=== PATIENT | male | born 1995 | race African-American/Black ===

== ENCOUNTER 2023-01-19 08:11 | Observation (INO) | payer MEDICAID ==
[~2023-01-19] VITALS: Ht 198.1 cm; Wt 63.9 kg
[2023-01-19] VITALS (16 sets, daily range): BP systolic 105–141; BP diastolic 53–91
[2023-01-19 08:38] LABS: Base Excess Venous -15.1 mmol/L; Bicarbonate Venous 14.2 mmol/L (24.0-30.0); PCO2 Venous 29.3 mmHg (38-42); pH Blood Venous 7.23 (7.34-7.37)
[2023-01-19 08:39] LABS: Hematocrit 45.5 % (37.0-53.0); Hemoglobin 15.1 g/dL (13.5-17.5); Mean Corpuscular HGB 28.5 pg (26.0-34.0); Mean Corpuscular HGB Conc 33.2 g/dL (31.5-36.5); Mean Corpuscular Volume 86 fL (80-100); Mean Platelet Volume 11.8 fL (9.1-12.4); Platelet Count 353 K/mm3 (150-400); RDW Coefficient Variation 12.1 % (11.7-14.2); RDW Standard Deviation 38.4 fL (35.1-46.3); Red Blood Cell Count 5.29 M/mm3 (4.30-5.90); White Blood Cell Count 19.43 K/mm3 (4.00-11.30)
[2023-01-19 08:52] LABS: Source, Urine Clean Catch
[2023-01-19 08:59] LABS: Magnesium, Blood 2.7 mg/dL (1.6-2.4)
[2023-01-19 09:09] LABS: Appearance, Urine Clear (Clear); Bilirubin, Urine Neg (Neg); Blood, Urine Neg (Neg); Glucose Qualitative, Urine 4+ (Neg); Ketones, Urine 4+ (Neg); Leukocyte Esterase, Urine Neg (Neg); Nitrite, Urine Neg (Neg); Protein, Urine Neg (Neg); Urobilinogen, Urine NORM (Normal)
[2023-01-19 09:11] LABS: BAND PERCENT MAN 4 % (0-8); BASOPHILS PERCENT MAN 0 % (0-2); EOSINOPHILS PERCENT MAN 0 % (0-6); LYMPHOCYTES ABSOLUTE MAN 0.97 K/mm3 (0.84-5.20); LYMPHOCYTES PERCENT MAN 5 % (21-46); MONOCYTES ABSOLUTE MAN 0.19 K/mm3 (0.16-1.47); MONOCYTES PERCENT MAN 1 % (4-13); NEUTROPHILS ABSOLUTE MAN 18.26 K/mm3 (1.96-9.15); SEG NEUTROPHILS PERCENT MAN 90 % (41-73); TOTAL CELLS COUNTED 100
[2023-01-19 09:13] LABS: Color, Urine No Color (P-Yellow)
[2023-01-19 09:16] LABS: Albumin, Blood 4.6 g/dL (3.4-5.0); Beta-hydroxybutyrate 98.8 mg/dL (0.2-2.8); Bilirubin, Total 1.7 mg/dL (0.1-1.0); Calcium, Blood 9.8 mg/dL (8.5-10.1); Creatinine, Blood 1.09 mg/dL (0.60-1.20); Globulin, Blood 4.4 g/dL (2.2-4.0); Potassium, Blood 4.8 mmol/L (3.5-5.5)
[2023-01-19 10:58] LABS: Glucose, Blood 624 mg/dL (70-99)
--- NOTE | 2023-01-19 11:53 | NUR ---
PT ADMITTED TO ICU FROM ER AT 1135 FOR DKA. PT ARRIVED DROWSY, AWAKENS BRIEFLY TO NAME BUT THEN FALLS QUICKLY BACK TO SLEEP. INSULIN GTT AT 6UNITS/HR. 3RD LITER OF NS BOLUS STARTED, 4L TOTAL ORDERED. PT IN SINUS TACH RATE AROUND 120. BP STABLE. TEMP 99.2. AWAITING CHEM 8 RESULTS WHICH WERE DRAWN APPROX 20MIN AGO. POWERGLIDE TO BE PLACED.
[2023-01-19 12:02] LABS: Bun/Creatinine Ratio 24.1 (12.0-20.0); Calcium, Blood 8.3 mg/dL (8.5-10.1); Creatinine, Blood 1.12 mg/dL (0.60-1.20); Potassium, Blood 5.8 mmol/L (3.5-5.5)
--- NOTE | 2023-01-19 12:38 | NUR ---
[address] MURRELL, REPEAT CHEM'S ORDERED. UPDATE GIVEN TO DR MURRELL.
--- NOTE | 2023-01-19 14:08 | NUR ---
POTASSIUM STOPPED PER DR MURRELL AT 1300. BOLUS 4L NS COMPLETE. NS NOW AT 200CC/HR. INSULIN AT 1UNIT/HR. CHEM REPEATED. PT AWAKE NOW. DENIES C/O NAUSEA, PAIN.
[2023-01-19 14:40] LABS: Bun/Creatinine Ratio 25.7 (12.0-20.0); Creatinine, Blood 0.94 mg/dL (0.60-1.20)
--- NOTE | 2023-01-19 15:26 | NUR ---
BS BELOW 250. D51/2 NS STARTED AT 150CC/HR. PT KALI CLEAR LIQUIDS. INSULIN AT 1UNIT/HR. LABS REVIEWED W DR MURRELL.
[2023-01-19] MEDS ORDERED: HUMALOG100 UNIT/1 SC ×2 (15:51→15:52)
[2023-01-19] MEDS ORDERED: INSULANI SC (15:52)
[2023-01-19] MEDS ORDERED: ACYC400 PO (16:08)
[2023-01-19 16:10] LABS: Bun/Creatinine Ratio 23.6 (12.0-20.0); Creatinine, Blood 0.89 mg/dL (0.60-1.20)
--- NOTE | 2023-01-19 16:36 | NUR ---
NS RESTARTED AT 200CC/HR PER YAYO CHIU TO RUN UNTIL BS LESS THAN 200, THAN SWITCH TO D51/2NS.
--- NOTE | 2023-01-19 17:49 | NUR ---
BS UNDER 250. NS INFUSING AT 200CC/HR PER DR CRAMER UNTIL BS UNDER 200. INSULIN GTT AT 2UNITS/HR. PT TOLERATING CLEAR LIQUID FLUIDS. DENIES C/O PAIN, NAUSEA, STATES " I FEEL SO MUCH BETTER THAN I DID THIS MORNING". PT SLEPT MAJORITY OF SHIFT, LESS DROWSY OVERALL; ABLE TO AWAKEN AND HOLD CONVERSATION.
[2023-01-19 18:37] LABS: U Amphetamine Screen Not Detected; U Barbituate Screen Not Detected; U Benzodiazapine Screen Not Detected; U Buprenorphine Screen Not Detected; U Cannabinoids Screen DETECTED; U Cocaine Screen Not Detected; U Methadone Screen Not Detected; U Methamphetamine Screen Not Detected; U Opiates Screen Not Detected; U Oxycodone Screen Not Detected; U Phencyclidine Screen Not Detected; U Propoxyphene Screen Not Detected
--- NOTE | 2023-01-19 18:38 | NUR ---
BS 183, FLUIDS CHANGED TO D5 1/2 NS AT 150CC/HR
[2023-01-19 19:42] LABS: Bun/Creatinine Ratio 18.2 (12.0-20.0); Calcium, Blood 7.7 mg/dL (8.5-10.1); Creatinine, Blood 0.82 mg/dL (0.60-1.20); Potassium, Blood 4.3 mmol/L (3.5-5.5)
--- NOTE | 2023-01-19 21:31 | NUR ---
ASSUMED CARE CARE WAS ASSUMED OF PT AT 1900, REPORT GIVEN BY KEYANNA CRUZ. PT A/O X4. PT ABLE TO MAKE NEEDS KNOWN AND ANSWER QUESTIONS APPROPRIATELY. PT ON RA, O2 SATS >95%. CARDIAC MONITORING REFLECTS SINUS TACH, HR 90s-100s. SBP 110s. INSULIN GTT INFUSING, SEE ICU FLOWSHEET FOR TITRATIONS. D5 1/2 NS INFUSING THROUGH PG.
[2023-01-20] VITALS: BP 121/69
[2023-01-20 00:06] LABS: Bun/Creatinine Ratio 13.7 (12.0-20.0); Calcium, Blood 7.9 mg/dL (8.5-10.1); Creatinine, Blood 0.8 mg/dL (0.60-1.20); Potassium, Blood 4.1 mmol/L (3.5-5.5)
--- NOTE | 2023-01-20 00:58 | NUR ---
PT'S ANION GAP AND CO2 STABILIZED. BLOOD SUGARS STABLE. CALDERON NOTIFIED, ORDERS RECIEVED. SEE ORDERS FOR CHANGES.
[2023-01-20 01:00] VITALS: BP 110/81
[2023-01-20 02:00] VITALS: BP 118/85
[2023-01-20 03:05] VITALS: BP 124/87
[2023-01-20 03:46] LABS: BASOPHILS ABSOLUTE AUTO 0.05 K/mm3 (0.00-0.23); BASOPHILS PERCENT AUTO 0 % (0-2); EOSINOPHILS ABSOLUTE AUTO 0.06 K/mm3 (0.00-0.68); EOSINOPHILS PERCENT AUTO 0 % (0-6); Hematocrit 34.2 % (37.0-53.0); Hemoglobin 11.7 g/dL (13.5-17.5); IMMATURE GRAN ABSOLUTE AUTO 0.05 K/mm3 (0.00-0.10); IMMATURE GRAN PERCENT AUTO 0 % (0-1); LYMPHOCYTES ABSOLUTE AUTO 3.28 K/mm3 (0.84-5.20); LYMPHOCYTES PERCENT AUTO 23 % (21-46); MONOCYTES ABSOLUTE AUTO 1.44 K/mm3 (0.16-1.47); MONOCYTES PERCENT AUTO 10 % (4-13); Mean Corpuscular HGB Conc 34.2 g/dL (31.5-36.5); Mean Corpuscular Volume 85 fL (80-100); Mean Platelet Volume 10.9 fL (9.1-12.4); NEUTROPHILS ABSOLUTE AUTO 9.51 K/mm3 (1.96-9.15); NEUTROPHILS PERCENT AUTO 66 % (41-73); Platelet Count 261 K/mm3 (150-400); RDW Coefficient Variation 12.3 % (11.7-14.2); RDW Standard Deviation 37.8 fL (35.1-46.3); Red Blood Cell Count 4.03 M/mm3 (4.30-5.90); White Blood Cell Count 14.39 K/mm3 (4.00-11.30)
[2023-01-20 04:24] LABS: Albumin, Blood 3.1 g/dL (3.4-5.0); Albumin/Globulin Ratio 1.1 (0.8-1.8); Bilirubin, Total 1.6 mg/dL (0.1-1.0); Bun/Creatinine Ratio 10.6 (12.0-20.0); Calcium, Blood 8.1 mg/dL (8.5-10.1); Creatinine, Blood 0.76 mg/dL (0.60-1.20); Globulin, Blood 2.9 g/dL (2.2-4.0); Potassium, Blood 3.7 mmol/L (3.5-5.5)
--- NOTE | 2023-01-20 05:51 | NUR ---
PT BEGAN COMPLAINING OF CHEST PAIN AND NAUSEA. PT VOMITTED ABOUT 200 mL LIQUID VOMIT. EKG PERFORMED, SINUS TACH REFLECTED. MEDICATED PT PER EMAR. AFTER PT WAS FINISHED VOMITTING, PT STATED CP WAS RELIEVED. BLOOD SUGAR CHECKED, STABLE. PROVIDER AWARE.
--- NOTE | 2023-01-20 06:44 | NUR ---
SHIFT SUMMARY PT REMAINS A/O X4. PT WAS TRANSITIONED TO SUBQ INSULIN THIS SHIFT, BLOOD SUGARS STABLE. PT MEDICAL FLOOR STATUS. PT ON RA, O2 SATS > 95%. CARDIAC MONITORING REFLECTED NSR/SINUS TACH DEPENDING ON IF AWAKE OR SLEEPING. SBP 110s. TOWARDS END OF SHIFT PT HAD EPISODE OF VOMITTING WITH CP, SEE NURSE NOTE. CP AND VOMITTING HAS RESOLVED SINCE. PG AND PIVs SL.
--- NOTE | 2023-01-20 07:52 | NUR ---
CARE OF PT ASSUMED AT 0700. PT AWAKE AND ALERT, DENIES C/O PAIN, DENIES NAUSEA AT THIS TIME. PT HAD VOMITED EARLY THIS AM AND WAS GIVEN ZOFRAN. BS 85 THIS AM, JUICE GIVEN. ADA DIET REPLACED W CLEAR LIQUIDS THIS AM. SLIDING SCALE CHANGED TO LOW, NO INSULIN INDICATED THIS AM.
[2023-01-20 07:57] VITALS: BP 144/93
--- NOTE | 2023-01-20 12:43 | NUR ---
PT DISCHARGED HOME IN STABLE CONDITION. VERBAL AND DC INFORMATION GIVEN TO PT WITH CLEAR UNDERSTANDING. PT TOLERATING SOLID FOODS, BS STABLE. RX'S FOR INSULIN FAXED TO [facility] IN [place] PER PT REQUEST. PT STATES HE DOES HAVE INSULIN AT HOME. PT DOES NOT HAVE A PCP BUT PLANS TO VISIT A CLINIC A WALK IN TOMORROW IN [place]; WHERE HE LIVES. IV'S DC'D.
== END 2023-01-20 12:41 | disposition home or self-care (01) ==
LOC: ER 08:11 → ICUE 08:12
PROVIDERS: Family Medicine; Physician Assistant; ADMIT Internal Medicine
DX: E10.10 Type 1 diabetes mellitus with ketoacidosis without coma (principal); R65.10 Systemic inflammatory response syndrome (SIRS) of non-infectious origin without acute organ dysfunction; E87.1 Hypo-osmolality and hyponatremia; F17.200 Nicotine dependence, unspecified, uncomplicated
CPT/HCPCS: 80048; 80053; 81003; 82010; 82803; 82947; 83036; 83735; 85025; 93005; 93010; 96361; 96365; 96366; 96367; 96374; 96375; 96376; 99285-25; A9270; C1751; G0378; J1200; J1790; J1815; J1885; J2405; J3480; J7030; J7042; J7050

== ENCOUNTER 2023-02-16 09:39 | Emergency (ER) | payer SELFPAY ==
[~2023-02-16] VITALS: Ht 198.1 cm; Wt 68.0 kg
[~2023-02-16 09:39] MED LIST: ACYC400 PO; HUMALOG100 UNIT/1 SC; INSULANI SC
[2023-02-16 10:34] LABS: BASOPHILS ABSOLUTE AUTO 0.04 K/mm3 (0.00-0.23); BASOPHILS PERCENT AUTO 0 % (0-2); EOSINOPHILS ABSOLUTE AUTO 0.03 K/mm3 (0.00-0.68); EOSINOPHILS PERCENT AUTO 0 % (0-6); Hematocrit 38.5 % (37.0-53.0); Hemoglobin 12.8 g/dL (13.5-17.5); IMMATURE GRAN ABSOLUTE AUTO 0.04 K/mm3 (0.00-0.10); IMMATURE GRAN PERCENT AUTO 0 % (0-1); LYMPHOCYTES ABSOLUTE AUTO 1.74 K/mm3 (0.84-5.20); LYMPHOCYTES PERCENT AUTO 18 % (21-46); MONOCYTES ABSOLUTE AUTO 0.41 K/mm3 (0.16-1.47); MONOCYTES PERCENT AUTO 4 % (4-13); Mean Corpuscular HGB 28.6 pg (26.0-34.0); Mean Corpuscular HGB Conc 33.2 g/dL (31.5-36.5); Mean Corpuscular Volume 86 fL (80-100); Mean Platelet Volume 11.7 fL (9.1-12.4); NEUTROPHILS ABSOLUTE AUTO 7.68 K/mm3 (1.96-9.15); NEUTROPHILS PERCENT AUTO 77 % (41-73); Platelet Count 309 K/mm3 (150-400); RDW Standard Deviation 38.1 fL (35.1-46.3); Red Blood Cell Count 4.47 M/mm3 (4.30-5.90); White Blood Cell Count 9.94 K/mm3 (4.00-11.30)
[2023-02-16 10:40] LABS: Bicarbonate Venous 19.8 mmol/L (24.0-30.0); pH Blood Venous 7.31 (7.34-7.37)
[2023-02-16 10:52] LABS: Albumin, Blood 3.8 g/dL (3.4-5.0); Albumin/Globulin Ratio 1.1 (0.8-1.8); Bilirubin, Total 0.9 mg/dL (0.1-1.0); Bun/Creatinine Ratio 31.1 (12.0-20.0); Calcium, Blood 8.8 mg/dL (8.5-10.1); Creatinine, Blood 0.74 mg/dL (0.60-1.20); Globulin, Blood 3.6 g/dL (2.2-4.0); Magnesium, Blood 2.6 mg/dL (1.6-2.4); Potassium, Blood 4.4 mmol/L (3.5-5.5); Total Protein, Blood 7.4 g/dL (6.4-8.2)
[2023-02-16 11:41] LABS: Source, Urine Clean Catch
[2023-02-16 11:47] LABS: Appearance, Urine Clear (Clear); Bilirubin, Urine Neg (Neg); Blood, Urine Neg (Neg); Color, Urine Yellow (P-Yellow); Glucose Qualitative, Urine 4+ (Neg); Ketones, Urine 4+ (Neg); Leukocyte Esterase, Urine Neg (Neg); Nitrite, Urine Neg (Neg); Protein, Urine Neg (Neg); Urobilinogen, Urine NORM (Normal)
[2023-02-16] MEDS ORDERED: LOPE2C PO (12:10)
[2023-02-16] MEDS ORDERED: ONDA4ODT MM (12:10)
[2023-02-16 13:14] VITALS: BP 133/86
== END 2023-02-16 13:14 | disposition home or self-care (01) ==
LOC: ER 09:39
PROVIDERS: Emergency Medicine
DX: R11.2 Nausea with vomiting, unspecified (principal); R19.7 Diarrhea, unspecified; E86.0 Dehydration; E10.65 Type 1 diabetes mellitus with hyperglycemia
CPT/HCPCS: 80053; 81003; 82803; 82947; 83735; 85025; 96361; 96374; 99284-25; J2405; J7030

== ENCOUNTER 2023-03-12 07:59 | Inpatient (IN) | payer SELFPAY ==
[2023-03-12] VITALS (17 sets, daily range): BP systolic 101–134; BP diastolic 61–89
[~2023-03-12] VITALS: Ht 177.8 cm; Wt 59.1 kg
[~2023-03-12 07:59] MED LIST changes: +LOPE2C PO; +ONDA4ODT MM
[2023-03-12 08:22] LABS: Base Excess Venous -21.2 mmol/L; Bicarbonate Venous 10.4 mmol/L (24.0-30.0); PCO2 Venous 31.4 mmHg (38-42)
[2023-03-12 08:23] LABS: BASOPHILS ABSOLUTE AUTO 0.07 K/mm3 (0.00-0.23); BASOPHILS PERCENT AUTO 1 % (0-2); EOSINOPHILS ABSOLUTE AUTO 0.07 K/mm3 (0.00-0.68); EOSINOPHILS PERCENT AUTO 1 % (0-6); Hematocrit 42.5 % (37.0-53.0); Hemoglobin 14.1 g/dL (13.5-17.5); IMMATURE GRAN ABSOLUTE AUTO 0.12 K/mm3 (0.00-0.10); IMMATURE GRAN PERCENT AUTO 1 % (0-1); LYMPHOCYTES ABSOLUTE AUTO 2.62 K/mm3 (0.84-5.20); LYMPHOCYTES PERCENT AUTO 20 % (21-46); MONOCYTES ABSOLUTE AUTO 0.59 K/mm3 (0.16-1.47); MONOCYTES PERCENT AUTO 5 % (4-13); Mean Corpuscular HGB 29.2 pg (26.0-34.0); Mean Corpuscular HGB Conc 33.2 g/dL (31.5-36.5); Mean Corpuscular Volume 88 fL (80-100); Mean Platelet Volume 11.5 fL (9.1-12.4); NEUTROPHILS ABSOLUTE AUTO 9.73 K/mm3 (1.96-9.15); NEUTROPHILS PERCENT AUTO 74 % (41-73); Platelet Count 371 K/mm3 (150-400); RDW Standard Deviation 38.5 fL (35.1-46.3); Red Blood Cell Count 4.83 M/mm3 (4.30-5.90)
[2023-03-12 08:25] LABS: pH Blood Venous 7.07 (7.34-7.37)
[2023-03-12 08:43] LABS: Alanine Aminotransfer (ALT/SGP 25 U/L (12-78); Albumin, Blood 3.9 g/dL (3.4-5.0); Albumin/Globulin Ratio 1.1 (0.8-1.8); Alk Phos 81 U/L (50-136); Anion Gap 22 mmol/L (6-16); Aspartate Aminotrans (AST/SGOT 22 U/L (12-37); Blood Urea Nitrogen 18 mg/dL (8-24); Bun/Creatinine Ratio 21.8 (12.0-20.0); CO2, Blood 12 mmol/L (21-32); Calcium, Blood 8.8 mg/dL (8.5-10.1); Chloride, Blood 99 mmol/L (98-108); Creatinine, Blood 0.82 mg/dL (0.60-1.20); Globulin, Blood 3.7 g/dL (2.2-4.0); Glomerular Filtration Rate 124 (60-); Glucose, Blood 608 mg/dL (70-99); Potassium, Blood 4.9 mmol/L (3.5-5.5); Sodium, Blood 133 mmol/L (136-145); Total Protein, Blood 7.6 g/dL (6.4-8.2)
[2023-03-12 10:45] LABS: Bun/Creatinine Ratio 24.4 (12.0-20.0); Calcium, Blood 8.8 mg/dL (8.5-10.1); Creatinine, Blood 0.78 mg/dL (0.60-1.20); Potassium, Blood 5.7 mmol/L (3.5-5.5)
[2023-03-12 11:05] LABS: Base Excess Venous -24.6 mmol/L; Bicarbonate Venous 8.7 mmol/L (24.0-30.0); PCO2 Venous 23.1 mmHg (38-42); pH Blood Venous 7.03 (7.34-7.37)
[2023-03-12 11:29] LABS: Glucose, Blood 481 mg/dL (70-99)
--- NOTE | 2023-03-12 11:30 | NUR ---
PT ARRIVES TO ICU 1 FROM ER AT 1110. PT IS A/O X4. C/O NAUSEA AND PAIN ALL OVER. STATES HE HAS BEEN VOMITTING FOR DAYS AND HIS BODY IS PAINFUL FROM THIS. ARRIVES ON 8 UNITS INSULIN GTT AND LR AT 200ML/HR. TURNED INSULIN DOWN ONCE CBG WAS OBTAINED, SEE FLOWSHEET FOR TITRATIONS. DR. GÓMEZ AT BEDSIDE TO EVAL PT. PT USES URINAL INDEP. WARM BLANKET PROVIDED AND CALL LIGHT IN REACH.
[2023-03-12 15:19] LABS: Base Excess Venous -13.7 mmol/L; Bicarbonate Venous 15.1 mmol/L (24.0-30.0); PCO2 Venous 29.4 mmHg (38-42); pH Blood Venous 7.27 (7.34-7.37)
--- NOTE | 2023-03-12 15:40 | NUR ---
CARE OF PATIENT ASSUMED AT 1530. PT SLEEPING. D51/2NS AT 200CC/HR. INSULIN GTT AT 5UNITS/HR. AWAITING LABS.
[2023-03-12 16:14] LABS: Bun/Creatinine Ratio 17.4 (12.0-20.0); Calcium, Blood 8.7 mg/dL (8.5-10.1); Creatinine, Blood 0.75 mg/dL (0.60-1.20); Potassium, Blood 4.5 mmol/L (3.5-5.5)
--- NOTE | 2023-03-12 17:32 | NUR ---
PT SLEEPING, AWAKENS TO VOICE. STATES PAIN IS IMPROVED, DENIES NAUSEA. INSULIN REMAINS AT 5UNITS/HR, LABS IMPROVING. BLOOD SUGARS AROUND 200.
--- NOTE | 2023-03-12 17:57 | NUR ---
DR GÓMEZ CALLED AND GIVEN UPDATE. ANABEL MORGAN ORDERED. PT TO STAY ON INSULIN GTT AND FLUIDS FOR NOW. REPEAT CHEM ORDERED.
[2023-03-12 19:51] LABS: Bun/Creatinine Ratio 14.6 (12.0-20.0); Calcium, Blood 8.3 mg/dL (8.5-10.1); Creatinine, Blood 0.69 mg/dL (0.60-1.20); Potassium, Blood 4.2 mmol/L (3.5-5.5)
[2023-03-12 21:08] LABS: Base Excess Venous -7.1 mmol/L; Bicarbonate Venous 19.1 mmol/L (24.0-30.0); PCO2 Venous 39.5 mmHg (38-42)
[2023-03-13] VITALS: BP 100/61
[2023-03-13 01:03] VITALS: BP 116/77
[2023-03-13 02:09] VITALS: BP 121/87
[2023-03-13 03:00] VITALS: BP 104/74
[2023-03-13 04:22] LABS: BASOPHILS ABSOLUTE AUTO 0.05 K/mm3 (0.00-0.23); BASOPHILS PERCENT AUTO 0 % (0-2); EOSINOPHILS PERCENT AUTO 1 % (0-6); Hematocrit 35.5 % (37.0-53.0); Hemoglobin 12.1 g/dL (13.5-17.5); IMMATURE GRAN ABSOLUTE AUTO 0.05 K/mm3 (0.00-0.10); IMMATURE GRAN PERCENT AUTO 0 % (0-1); LYMPHOCYTES ABSOLUTE AUTO 3.24 K/mm3 (0.84-5.20); LYMPHOCYTES PERCENT AUTO 26 % (21-46); MONOCYTES ABSOLUTE AUTO 1.12 K/mm3 (0.16-1.47); MONOCYTES PERCENT AUTO 9 % (4-13); Mean Corpuscular HGB 29.3 pg (26.0-34.0); Mean Corpuscular HGB Conc 34.1 g/dL (31.5-36.5); Mean Corpuscular Volume 86 fL (80-100); Mean Platelet Volume 11.7 fL (9.1-12.4); NEUTROPHILS ABSOLUTE AUTO 7.87 K/mm3 (1.96-9.15); NEUTROPHILS PERCENT AUTO 63 % (41-73); Platelet Count 311 K/mm3 (150-400); RDW Coefficient Variation 12.2 % (11.7-14.2); RDW Standard Deviation 38.3 fL (35.1-46.3); Red Blood Cell Count 4.13 M/mm3 (4.30-5.90); White Blood Cell Count 12.43 K/mm3 (4.00-11.30)
[2023-03-13 04:50] LABS: Albumin, Blood 3.1 g/dL (3.4-5.0); Bilirubin, Total 1.1 mg/dL (0.1-1.0); Bun/Creatinine Ratio 11.8 (12.0-20.0); Calcium, Blood 8.5 mg/dL (8.5-10.1); Creatinine, Blood 0.68 mg/dL (0.60-1.20); Globulin, Blood 3.2 g/dL (2.2-4.0); Potassium, Blood 3.9 mmol/L (3.5-5.5); Total Protein, Blood 6.3 g/dL (6.4-8.2)
[2023-03-13 06:06] VITALS: BP 124/80
--- NOTE | 2023-03-13 06:47 | NUR ---
SHIFT SUMMERY PT WAS ON AN INSULIN GTT INTITALLY AT THE BEGINNING OF MY SHIFT. HE WAS TRANSITIONED TO LONG ACTING AND INSULIN DRIP WAS DISCONTINUED PER MD ORDERS. PT HAS TOLERATED WELL. HE HAS HAD NO N/V OVERNIGHT. HE HAS VOIDED IN THE URINAL. HE IS ALERT AND ORIENTED X4, COMPLIANT W/CARE. PT IS TOLERATING PO W/OUT DIFFICULTY.
--- NOTE | 2023-03-13 07:32 | NUR ---
Assumed care of pt at 0700. Report received from Roseanne CRUZ. Pt in bed, resting. Awakens with gentle verbal stimulus. SpO2 98% with room air. SR per monitor, rate 84. BP stable. IV S/L.
[2023-03-13 15:55] VITALS: BP 105/70
--- NOTE | 2023-03-13 15:59 | NUR ---
Pt. is sitting up in his bed texting when he welcomes my visit. Pt. is unsettled by the fact that he can't afford his insulin. Pt. is guarded, but displays evidence of trust with this loom fixer when a life review is facilitated, and rapport is established. While Pt. declined specific spiritual care, he verbalized gratitude for my visit.
[2023-03-13] MEDS ORDERED: HUMALOG KW100 UNIT/1 SC (16:30)
--- NOTE | 2023-03-13 18:14 | NUR ---
SUMMARY Pt called RN into room and stated he would like to go home today, if possible. Discussed with Dr Fall and provider wrote discharge orders. Provider aware that patient does not qualify for medicaid. Pt provided with coupon per [facility] and Dr Fall wrote for pt's insulin that is compatible with coupon. [facility]ations [facility] in [place] per pt's request as this is the pharmacy that is most accessible to him. Pt encouraged to establish PCP and follow up within one week.
== END 2023-03-13 17:00 | disposition home or self-care (01) | DRG 639 ==
LOC: ER 07:59 → ICUE 09:37
PROVIDERS: Emergency Medicine; ADMIT Student in an Organized Health Care Education/Training Program
DX: E10.10 Type 1 diabetes mellitus with ketoacidosis without coma (principal); T38.3X6A Underdosing of insulin and oral hypoglycemic [antidiabetic] drugs, initial encounter; Z91.138 Patient's unintentional underdosing of medication regimen for other reason; Z79.4 Long term (current) use of insulin
CPT/HCPCS: 36415; 80048; 80053; 82803; 82947; 83690; 83735; 84100; 85025; 93005; 93010; 94760; 96374; 96375; 99285-25; A9270; J1815; J2405; J2765; J7030; J7042; J7120

== ENCOUNTER 2023-04-09 02:34 | Observation (INO) | payer SELFPAY ==
[~2023-04-09] VITALS: Ht 195.6 cm; Wt 66.2 kg
[~2023-04-09 02:34] MED LIST changes: +HUMALOG KW100 UNIT/1 SC
[2023-04-09 02:50] LABS: BASOPHILS ABSOLUTE AUTO 0.05 K/mm3 (0.00-0.23); BASOPHILS PERCENT AUTO 0 % (0-2); EOSINOPHILS ABSOLUTE AUTO 0.17 K/mm3 (0.00-0.68); EOSINOPHILS PERCENT AUTO 2 % (0-6); Hematocrit 39.7 % (37.0-53.0); Hemoglobin 13.2 g/dL (13.5-17.5); IMMATURE GRAN ABSOLUTE AUTO 0.04 K/mm3 (0.00-0.10); IMMATURE GRAN PERCENT AUTO 0 % (0-1); LYMPHOCYTES ABSOLUTE AUTO 2.74 K/mm3 (0.84-5.20); LYMPHOCYTES PERCENT AUTO 25 % (21-46); MONOCYTES ABSOLUTE AUTO 0.62 K/mm3 (0.16-1.47); MONOCYTES PERCENT AUTO 6 % (4-13); Mean Corpuscular HGB 29.1 pg (26.0-34.0); Mean Corpuscular HGB Conc 33.2 g/dL (31.5-36.5); Mean Corpuscular Volume 88 fL (80-100); Mean Platelet Volume 11.4 fL (9.1-12.4); NEUTROPHILS ABSOLUTE AUTO 7.53 K/mm3 (1.96-9.15); NEUTROPHILS PERCENT AUTO 68 % (41-73); Platelet Count 250 K/mm3 (150-400); RDW Coefficient Variation 11.9 % (11.7-14.2); RDW Standard Deviation 38.1 fL (35.1-46.3); Red Blood Cell Count 4.53 M/mm3 (4.30-5.90); White Blood Cell Count 11.15 K/mm3 (4.00-11.30)
[2023-04-09 03:04] LABS: Albumin, Blood 3.3 g/dL (3.4-5.0); Bilirubin, Total 1.6 mg/dL (0.1-1.0); Bun/Creatinine Ratio 19.7 (12.0-20.0); Calcium, Blood 8.6 mg/dL (8.5-10.1); Creatinine, Blood 0.71 mg/dL (0.60-1.20); Globulin, Blood 3.3 g/dL (2.2-4.0); Potassium, Blood 4.8 mmol/L (3.5-5.5); Total Protein, Blood 6.6 g/dL (6.4-8.2)
[2023-04-09 04:20] LABS: Source, Urine Clean Catch
[2023-04-09 04:22] LABS: Bilirubin, Urine Neg (Neg); Blood, Urine Neg (Neg); Glucose Qualitative, Urine 4+ (Neg); Ketones, Urine 4+ (Neg); Leukocyte Esterase, Urine Neg (Neg); Nitrite, Urine Neg (Neg); Protein, Urine Neg (Neg); Specific Gravity, Urine 1.025 (1.003-1.022); Urobilinogen, Urine NORM (Normal)
[2023-04-09 04:40] LABS: Appearance, Urine Clear (Clear); Color, Urine Pale Yellow (P-Yellow)
[2023-04-09 05:22] LABS: Base Excess Venous -21.3 mmol/L; Bicarbonate Venous 10.4 mmol/L (24.0-30.0); PCO2 Venous 24.4 mmHg (38-42); PO2 Venous 141 mmHg (38-42); pH Blood Venous 7.12 (7.34-7.37)
[2023-04-09 05:40] LABS: Beta-hydroxybutyrate 83.9 mg/dL (0.2-2.8)
[2023-04-09 06:35] LABS: U Amphetamine Screen Not Detected; U Barbituate Screen Not Detected; U Benzodiazapine Screen Not Detected; U Buprenorphine Screen Not Detected; U Cannabinoids Screen Not Detected; U Cocaine Screen Not Detected; U Methadone Screen Not Detected; U Methamphetamine Screen Not Detected; U Opiates Screen Not Detected; U Oxycodone Screen Not Detected; U Phencyclidine Screen Not Detected
[2023-04-09 06:54] VITALS: BP 144/83
[2023-04-09 09:03] LABS: BASOPHILS ABSOLUTE AUTO 0.03 K/mm3 (0.00-0.23); BASOPHILS PERCENT AUTO 0 % (0-2); EOSINOPHILS PERCENT AUTO 0 % (0-6); Hematocrit 39.4 % (37.0-53.0); Hemoglobin 12.9 g/dL (13.5-17.5); IMMATURE GRAN ABSOLUTE AUTO 0.08 K/mm3 (0.00-0.10); IMMATURE GRAN PERCENT AUTO 1 % (0-1); LYMPHOCYTES PERCENT AUTO 16 % (21-46); MONOCYTES ABSOLUTE AUTO 0.51 K/mm3 (0.16-1.47); MONOCYTES PERCENT AUTO 3 % (4-13); Mean Corpuscular HGB 29.2 pg (26.0-34.0); Mean Corpuscular HGB Conc 32.7 g/dL (31.5-36.5); Mean Corpuscular Volume 89 fL (80-100); Mean Platelet Volume 11.2 fL (9.1-12.4); NEUTROPHILS ABSOLUTE AUTO 12.24 K/mm3 (1.96-9.15); NEUTROPHILS PERCENT AUTO 80 % (41-73); Platelet Count 290 K/mm3 (150-400); RDW Coefficient Variation 11.9 % (11.7-14.2); RDW Standard Deviation 39.2 fL (35.1-46.3); Red Blood Cell Count 4.42 M/mm3 (4.30-5.90); White Blood Cell Count 15.26 K/mm3 (4.00-11.30)
[2023-04-09 12:37] LABS: Albumin, Blood 3.2 g/dL (3.4-5.0); Anion Gap 14 mmol/L (6-16); Blood Urea Nitrogen 11 mg/dL (8-24); Bun/Creatinine Ratio 15.1 (12.0-20.0); CO2, Blood 15 mmol/L (21-32); Calcium, Blood 8.5 mg/dL (8.5-10.1); Chloride, Blood 110 mmol/L (98-108); Creatinine, Blood 0.73 mg/dL (0.60-1.20); Glomerular Filtration Rate 129 (60-); Glucose, Blood 178 mg/dL (70-99); Magnesium, Blood 1.9 mg/dL (1.6-2.4); Phosphorus, Blood 3.4 mg/dL (2.5-4.9); Potassium, Blood 4.5 mmol/L (3.5-5.5); Sodium, Blood 139 mmol/L (136-145)
[2023-04-09 15:53] VITALS: BP 112/59
[2023-04-09 17:13] LABS: Anion Gap 9 mmol/L (6-16); Blood Urea Nitrogen 10 mg/dL (8-24); Bun/Creatinine Ratio 12.2 (12.0-20.0); CO2, Blood 20 mmol/L (21-32); Calcium, Blood 8.5 mg/dL (8.5-10.1); Chloride, Blood 108 mmol/L (98-108); Creatinine, Blood 0.82 mg/dL (0.60-1.20); Glomerular Filtration Rate 124 (60-); Glucose, Blood 154 mg/dL (70-99); Phosphorus, Blood 3.1 mg/dL (2.5-4.9); Potassium, Blood 4.2 mmol/L (3.5-5.5); Sodium, Blood 137 mmol/L (136-145)
[2023-04-09] MEDS ORDERED: ONDA4ODT MM (18:28)
--- NOTE | 2023-04-09 19:19 | NUR ---
SHIFT SUMMARY PATIENT WITH BLOOD SUGAR CONTINUING TO NORMALIZE FROM 490S TO 149 PRIOR TO DINNER. PATIENT REQUESTED TO GO HOME THIS EVENING AT 5:30 PM SO HE CAN WORK TOMORROW. DR DELEON NOTIFIFED. BED IN LOW POSITION. PATIENT UP AD ALFREDO IN ROOM AND ABLE TO MAKE NEEDS KNOWN. AT THIS TIME HE IS JUST WAITING FOR HIS RIDE TO PICK HIM UP.
== END 2023-04-09 19:58 | disposition home or self-care (01) ==
LOC: ER 02:34 → MEDS 02:35
PROVIDERS: Emergency Medicine; Internal Medicine; ADMIT Internal Medicine
DX: E10.10 Type 1 diabetes mellitus with ketoacidosis without coma (principal); D72.829 Elevated white blood cell count, unspecified; Z79.4 Long term (current) use of insulin
CPT/HCPCS: 36415; 80053; 80069; 81003; 82010; 82803; 82947; 83690; 83735; 85025; 96361; 96374; 96375; 99285-25; A9270; G0378; J0780; J1815; J7030